=== PATIENT | male | born 1985 | race African-American/Black ===

== ENCOUNTER 2017-11-15 18:39 | Emergency (ER) | payer MEDICAID ==
[2017-11-15] MEDS ORDERED: Albuterol/Ipratropium 3.0-0.5 MG/3 ML Neb Soln NEB ONE (19:47)
--- NOTE | 2017-11-15 19:47 | EDM.PDOC ---
ED HPI GENERAL MEDICAL PROBLEM - General Chief Complaint: Respiratory Problem Stated Complaint: DIFFICULTY BREATHING Time Seen by Provider: 11/15/17 18:45 Source of Information: Reports: Patient History Limitations: Reports: No Limitations - History of Present Illness INITIAL COMMENTS - FREE TEXT/NARRATIVE: History of present illness: [32-year-old male comes in complaining of shortness of breath. Patient has known asthma and has run out of his inhaler. Patient indicates it's just from lack of time and ability to get the prescription filled.] Review of systems: As per history of present illness and below otherwise all systems reviewed and negative. Past medical history: As per history of present illness and as reviewed below otherwise noncontributory. Surgical history: As per history of present illness and as reviewed below otherwise noncontributory. Social history: No reported history of drug or alcohol abuse. Family history: As per history of present illness and as reviewed below otherwise noncontributory. Physical exam: HEENT: Atraumatic, normocephalic, pupils reactive, negative for conjunctival pallor or scleral icterus, mucous membranes moist, throat clear, neck supple, nontender, trachea midline. Lungs: Poor air movement noted partially secondary to body habitus but also noted to shallow respirations and limited diaphragmatic excursion, harsh short dry cough, otherwise breath sounds equal bilaterally, chest nontender. Heart: S1S2, regular, negative for clicks, rubs, or JVD. Abdomen: Soft, nondistended, nontender. Negative for masses or hepatosplenomegaly. Negative for costovertebral tenderness. Pelvis: Stable nontender. Genitourinary: Deferred. Rectal: Deferred. Extremities: Atraumatic, negative for cords or calf pain. Neurovascular unremarkable. Neuro: Awake, alert, oriented. Cranial nerves II through XII unremarkable. Cerebellum unremarkable. Motor and sensory unremarkable throughout. Exam nonfocal. Patient give us in a DuoNeb treatment with significant improvement on air movement and patient's statements of feeling better and being able to breathe easier. Diagnostics: [] Therapeutics: [DuoNeb, Solu-Medrol] Impression: [Asthma exacerbation] Plan: [New inhaler, Medrol Dosepak] Definitive disposition and diagnosis as appropriate pending reevaluation and review of above. Chest Pain Score (Numeric/FACES): 5 - Related Data Allergies Allergy/AdvReac Type Severity Reaction Status Date / Time sumatriptan [From Imitrex] Allergy Other Verified 11/15/17 19:14 Home Meds: Home Meds Albuterol Sulfate 2.5 mg INH ASDIRECTED PRN 11/15/17 [History] Albuterol [IMW: Ventolin HFA] 2 puff INH ASDIRECTED PRN 11/15/17 [History] Lisdexamfetamine Dimesylate [Vyvanse] 40 mg PO DAILY 11/15/17 [History] Metoprolol Succinate [Toprol XL] 50 mg PO DAILY 11/15/17 [History] hydrOXYzine HCl [Atarax] 50 mg PO DAILY PRN 11/15/17 [History] Past Medical History HEENT History: Reports: None Cardiovascular History: Reports: Hypertension Respiratory History: Reports: Asthma Musculoskeletal History: Reports: None Psychiatric History: Reports: ADHD - Past Surgical History HEENT Surgical History: Reports: Tonsillectomy Cardiovascular Surgical History: Reports: None Respiratory Surgical History: Reports: None Musculoskeletal Surgical History: Reports: Other (See Below) Other Musculoskeletal Surgeries/Procedures:: left knee surgery Social & Family History - Family History Family Medical History: Noncontributory - Tobacco Use Smoking Status *Q: Never Smoker Second Hand Smoke Exposure: No - Caffeine Use Caffeine Use: Reports: Coffee, Energy Drinks, Soda - Recreational Drug Use Recreational Drug Use: No ED ROS GENERAL - Review of Systems Review Of Systems: See Below (See history of present illness) ED EXAM, GENERAL - Physical Exam Exam: See Below (History of present illness) Course - Vital Signs Last Recorded V/S: Last Vital Signs Temp 35.9 C 11/15/17 19:09 Pulse 90 11/15/17 19:09 Resp 19 11/15/17 19:09 BP 145/89 H 11/15/17 19:09 Pulse Ox 97 11/15/17 19:09 - Orders/Labs/Meds Orders: Active Orders 24 hr Category Date Time Status RT Aerosol Therapy [RC] ASDIRECTED Care 11/15/17 19:48 Active Meds: Medications Discontinued Medications Generic Name Dose Route Start Last Admin Trade Name Freq PRN Reason Stop Dose Admin Albuterol/Ipratropium 3 ml 11/15/17 19:47 11/15/17 19:54 Duoneb 3.0-0.5 Mg/3 Ml NEB 11/15/17 19:48 3 ml ONETIME ONE Administration Methylprednisolone Sodium Succinate 125 mg 11/15/17 19:48 11/15/17 19:54 Solu-Medrol IM 11/15/17 19:49 125 mg ONETIME ONE Administration Departure - Departure Time of Disposition: 20:34 Disposition: Home, Self-Care 01 Condition: Good Clinical Impression: Exacerbation of asthma - Discharge Information Instructions: Asthma, Adult Referrals: PCP,None [Primary Care Provider] - Forms: ED Department Discharge Additional Instructions: The following information is given to patients seen in the emergency department who are being discharged to home. This information is to outline your options for follow-up care. We provide all patients seen in our emergency department with a follow-up referral. The need for follow-up, as well as the timing and circumstances, are variable depending upon the specifics of your emergency department visit. If you don't have a primary care physician on staff, we will provide you with a referral. We always advise you to contact your personal physician following an emergency department visit to inform them of the circumstance of the visit and for follow-up with them and/or the need for any referrals to a consulting specialist. The emergency department will also refer you to a specialist when appropriate. This referral assures that you have the opportunity for follow-up care with a specialist. All of these measure are taken in an effort to provide you with optimal care, which includes your follow-up. Under all circumstances we always encourage you to contact your private physician who remains a resource for coordinating your care. When calling for follow-up care, please make the office aware that this follow-up is from your recent emergency room visit. If for any reason you are refused follow-up, please contact the [facility] Emergency Department at and asked to speak to the emergency department charge nurse. Take medication as directed Follow-up with primary care provider one to 2 days Return to ED as needed as discussed - My Orders Last 24 Hours: My Active Orders 11/15/17 19:48 RT Aerosol Therapy [RC] ASDIRECTED - Assessment/Plan Last 24 Hours: My Active Orders 11/15/17 19:48 RT Aerosol Therapy [RC] ASDIRECTED
[2017-11-15] MEDS ORDERED: methylPREDNISolone Sodium Succinate 125 MG/2 ML SDV IM ONE (19:48)
== END 2017-11-15 20:54 | disposition home or self-care (01) ==
LOC: MW.ED 18:39
DX: J45.901 Unspecified asthma with (acute) exacerbation (principal); I10 Essential (primary) hypertension; F90.9 Attention-deficit hyperactivity disorder, unspecified type; Z79.899 Other long term (current) drug therapy; Z88.8 Allergy status to other drugs, medicaments and biological substances
CPT/HCPCS: 96372; 99284; J2930; 99283

== ENCOUNTER 2017-11-20 09:56 | Emergency (ER) | payer MEDICAID ==
[2017-11-20] MEDS ORDERED: Albuterol/Ipratropium 3.0-0.5 MG/3 ML Neb Soln NEB ONE (10:35)
--- NOTE | 2017-11-20 10:43 | EDM.PDOC ---
ED HPI GENERAL MEDICAL PROBLEM - General Chief Complaint: Respiratory Problem Stated Complaint: COUGHING, CHEST CONGESTION Time Seen by Provider: 11/20/17 10:30 Source of Information: Reports: Patient History Limitations: Reports: No Limitations - History of Present Illness INITIAL COMMENTS - FREE TEXT/NARRATIVE: HISTORY AND PHYSICAL: History of present illness: [Patient comes to the emergency room complaining of cough, sore throat, and chest congestion. He feels as though it's hard to breathe and he is coughing up thick yellow sputum. He states that it is foul tasting and he is concerned that he may have pneumonia. Complains of pain to anterior bilateral chest, worse with taking a deep breath.. Pain is equal bilaterally. Denies back pain. Feels short of breath but is not having any actual difficulty breathing. He's had episodes of feeling sweaty but no overt fevers. Denies earaches and runny nose. No nausea vomiting or diarrhea. He reports a history of asthma for which he uses an inhaler occasionally. Symptoms began on November 04, 2017 and has gradually intensified. He was originally seen in the emergency room on November at which point he was prescribed a Medrol Dosepak and an inhaler. He is feeling worse since he was initially evaluated at that time. Patient states that he works in the [employer]. Has not missed any work other than to come to the ER at the insistence of his supervisor bonding.] Review of systems: As per history of present illness and below otherwise all systems reviewed and negative. Past medical history: As per history of present illness and as reviewed below otherwise noncontributory. Surgical history: As per history of present illness and as reviewed below otherwise noncontributory. Social history: No reported history of drug or alcohol abuse. Family history: As per history of present illness and as reviewed below otherwise noncontributory. Physical exam: Gen.: Well-developed, obese male in no acute distress. He is breathing well on room air. HEENT: Atraumatic, normocephalic. TMs are pearly umana and without erythema bilaterally. Oral mucous membranes are pink and moist. No tonsillar swelling erythema or exudate. Neck supple no lymphadenopathy. Lungs: Wheezing is heard primarily in upper lung lawson. Diminished breath sounds to bilateral lower lung lawson. Clear to auscultation, breath sounds equal bilaterally, chest nontender. Heart: S1S2, regular rate and rhythm. Abdomen: Soft, nondistended, nontender. Negative for masses, guarding or rebound. Pelvis: Stable nontender. Genitourinary: Deferred. Rectal: Deferred. Extremities: Atraumatic and ambulatory without difficulty. Neurovascular unremarkable. Neuro: Awake, alert, oriented. Motor and sensory unremarkable throughout. Exam nonfocal. Diagnostics: [Chest x-ray] Therapeutics: [DuoNeb Albuterol per nebulizer] Impression: [Asthma Hypertension] Plan: [DuoNeb and albuterol given in the ER. Wheezing improves but lung sounds continue to be coarse. Chest x-ray shows no pneumonia or abnormality. Rx is written for azithromycin 250 mg #6 si tabs by mouth today, then 1 daily until all taken 0 refills. Continue albuterol inhaler. Establish care with local PCP. Return to ER as needed as discussed. Definitive disposition and diagnosis as appropriate pending reevaluation and review of above. "Lung Pain" Pain Score (Numeric/FACES): 5 - Related Data Allergies Allergy/AdvReac Type Severity Reaction Status Date / Time sumatriptan [From Imitrex] Allergy Other Verified 11/15/17 19:14 Home Meds: Home Meds Albuterol Sulfate 2.5 mg INH ASDIRECTED PRN 11/15/17 [History] Albuterol Sulfate [Proair Hfa] 2 puff IH Q6HR #1 hfa.aer.[email or web address] 11/15/17 [Rx] Albuterol [IMW: Ventolin HFA] 2 puff INH ASDIRECTED PRN 11/15/17 [History] Inhaler, Assist Devices [Space Chamber Plus] 1 each MC ASDIRECTED #1 spacer 03/28 [Rx] Lisdexamfetamine Dimesylate [Vyvanse] 40 mg PO DAILY 11/15/17 [History] Metoprolol Succinate [Toprol XL] 50 mg PO DAILY 11/15/17 [History] hydrOXYzine HCl [Atarax] 50 mg PO DAILY PRN 11/15/17 [History] methylPREDNISolone [Medrol] 4 mg PO DAILY #21 tab.ds.pk 11/15/17 [Rx] Past Medical History HEENT History: Reports: None Cardiovascular History: Reports: Hypertension Respiratory History: Reports: Asthma Musculoskeletal History: Reports: None Psychiatric History: Reports: ADHD - Past Surgical History HEENT Surgical History: Reports: Tonsillectomy Cardiovascular Surgical History: Reports: None Respiratory Surgical History: Reports: None Musculoskeletal Surgical History: Reports: Other (See Below) Other Musculoskeletal Surgeries/Procedures:: left knee surgery Social & Family History - Family History Family Medical History: Noncontributory - Tobacco Use Smoking Status *Q: Never Smoker Second Hand Smoke Exposure: No - Caffeine Use Caffeine Use: Reports: Coffee, Energy Drinks, Soda - Recreational Drug Use Recreational Drug Use: No ED ROS GENERAL - Review of Systems Review Of Systems: ROS reveals no pertinent complaints other than HPI. ED EXAM, GENERAL - Physical Exam Exam: See Below Course - Vital Signs Last Recorded V/S: Last Vital Signs Temp 98.7 F 11/20/17 10:27 Pulse 73 11/20/17 10:27 Resp 16 11/20/17 10:27 BP 139/85 11/20/17 10:27 Pulse Ox 97 11/20/17 10:27 - Orders/Labs/Meds Orders: Active Orders 24 hr Category Date Time Status RT Aerosol Therapy [RC] ASDIRECTED Care 11/20/17 10:36 Active RT Aerosol Therapy [RC] ASDIRECTED Care 11/20/17 11:37 Active Meds: Medications Discontinued Medications Generic Name Dose Route Start Last Admin Trade Name Javier PRN Reason Stop Dose Admin Albuterol 2.5 mg 11/20/17 11:37 Proventil Neb Soln NEB 11/20/17 11:38 ONETIME ONE Albuterol/Ipratropium 3 ml 11/20/17 10:35 Duoneb 3.0-0.5 Mg/3 Ml NEB 11/20/17 10:36 ONETIME ONE Departure - Departure Time of Disposition: 11:45 Disposition: Home, Self-Care 01 Condition: Good Clinical Impression: URI (upper respiratory infection), Asthma - Discharge Information Referrals: PCP,None [Primary Care Provider] - Forms: ED Department Discharge Additional Instructions: The following information is given to patients seen in the emergency department who are being discharged to home. This information is to outline your options for follow-up care. We provide all patients seen in our emergency department with a follow-up referral. The need for follow-up, as well as the timing and circumstances, are variable depending upon the specifics of your emergency department visit. If you don't have a primary care physician on staff, we will provide you with a referral. We always advise you to contact your personal physician following an emergency department visit to inform them of the circumstance of the visit and for follow-up with them and/or the need for any referrals to a consulting specialist. The emergency department will also refer you to a specialist when appropriate. This referral assures that you have the opportunity for follow-up care with a specialist. All of these measure are taken in an effort to provide you with optimal care, which includes your follow-up. Under all circumstances we always encourage you to contact your private physician who remains a resource for coordinating your care. When calling for follow-up care, please make the office aware that this follow-up is from your recent emergency room visit. If for any reason you are refused follow-up, please contact the [facility] emergency department at and asked to speak to the emergency department charge nurse. [facility] [address] [place] [id number] Establish care with a local primary care provider at the clinic listed above. Take antibiotic as prescribed. Continue inhaler as previously prescribed. Excuse from work today and tomorrow to rest. Push fluids. Return to ER as needed as discussed. - My Orders Last 24 Hours: My Active Orders 11/20/17 10:36 RT Aerosol Therapy [RC] ASDIRECTED 11/20/17 11:37 RT Aerosol Therapy [RC] ASDIRECTED - Assessment/Plan Last 24 Hours: My Active Orders 11/20/17 10:36 RT Aerosol Therapy [RC] ASDIRECTED 11/20/17 11:37 RT Aerosol Therapy [RC] ASDIRECTED
--- NOTE | 2017-11-20 11:11 | CR ---
EXAMINATION: Two-view chest (PA and Lateral views). HISTORY: Shortness of breath. FINDINGS: The trachea is midline. The cardiomediastinal silhouette is within normal limits. No pulmonary infilt rates, effusions or pneumothorax. Osseous structures appear unremarkable. IMPRESSION: No acute cardiopulmonary process.
[2017-11-20] MEDS ORDERED: Albuterol 0.083% 2.5 MG/3 ML Neb Soln NEB ONE (11:37)
== END 2017-11-20 12:15 | disposition home or self-care (01) ==
LOC: MW.ED 09:56
DX: J45.909 Unspecified asthma, uncomplicated (principal); J06.9 Acute upper respiratory infection, unspecified; I10 Essential (primary) hypertension; Z88.8 Allergy status to other drugs, medicaments and biological substances; Z79.899 Other long term (current) drug therapy
CPT/HCPCS: 71046; 71046-26; 99283-25